=== PATIENT | male | born 1955 | race Caucasian/White ===

== ENCOUNTER 2017-08-22 10:33 | Outpatient (RCR) | payer OTHER ==
[~2017-08-22 10:33] MED LIST: ASCO500T20 PO; ASPI325T32 PO; CHOL5000 PO; CYCL10TA9 PO; FAMO20TA5 PO; FLAX100011 PO; LIPOFLAVONOID PO; LUTE20TA PO; MAGN250T7 PO; METF500T4 PO; METF500T8 PO; METO-272 PO; METO25TA PO; MULT-974 PO; OLME20TA21 PO
== END 2017-11-20 | disposition home or self-care (01) ==
LOC: CARD 10:33
PROVIDERS: ATTEND Nurse Practitioner Family
DX: R00.2 Palpitations (principal)
CPT/HCPCS: 93225; 93226

== ENCOUNTER → 2018-06-17 | Outpatient (CLI) | payer OTHER ==
--- NOTE | 2018-06-17 15:24 | Diagnostic Imaging Report ---
INDICATION: Back pain. TIME OF EXAMINATION: 1:51 PM. TECHNIQUE: Frontal and lateral views of the thoracic spine were obtained. FINDINGS: The curvature and alignment of the thoracic spine are normal. The vertebral body heights are maintained. No acute compression fracture is seen. There is multilevel degenerative disc disease with marginal osteophyte formation. The pedicles and paraspinous line are intact. IMPRESSION: Thoracic spondylosis. No acute bony abnormality is detected. Dictated by: Dictated on workstation # [id number]
== END ==
LOC: RAD 12:33
PROVIDERS: ATTEND Family Medicine
DX: M47.814 Spondylosis without myelopathy or radiculopathy, thoracic region (principal)
CPT/HCPCS: 72070

== ENCOUNTER 2019-09-30 14:51 | Outpatient (RCR) | payer MEDICARE ==
[~2019-09-30] VITALS: Ht 170 cm; Wt 82.0 kg
== END 2019-12-29 | disposition home or self-care (01) ==
LOC: DSME 14:51
PROVIDERS: ATTEND Family Medicine
DX: E11.9 Type 2 diabetes mellitus without complications (principal); I10 Essential (primary) hypertension

== ENCOUNTER → 2020-03-26 | Outpatient (CLI) | payer MEDICARE ==
--- NOTE | 2020-03-26 13:14 | Diagnostic Imaging Report ---
EXAMINATION: Left shoulder at 12:28 p.m. INDICATION: Pain. FINDINGS: Three views were obtained. There are no prior left shoulder examinations available for comparison. There is no fracture, dislocation, or acute bony abnormality evident. There is only mild degenerative disease of the acromioclavicular joint and the glenohumeral joint. The soft tissues are unremarkable. IMPRESSION: 1. There is no evidence for an acute bony abnormality. 2. If there is clinical concern regarding an injury to the rotator cuff or labrum and further imaging is desired, then MRI would be recommended. Dictated by: Dictated on workstation # [id number]
--- NOTE | 2020-03-26 13:17 | Diagnostic Imaging Report ---
EXAMINATION: Thoracic spine. INDICATION: Chronic back pain. FINDINGS: AP, lateral, and swimmer's views were obtained. The lateral view again shows the degenerative disc and bony disease involving the thoracic spine that was noted on the prior exam of 06/17/2018. The degenerative changes do not appear to have progressed. There is no fracture, dislocation, or acute bony abnormality evident. There is no sign of a paraspinal mass. IMPRESSION: 1. There is no evidence for an acute bony abnormality. 2. The degenerative disc and bony disease seen on the prior study does not appear to have progressed. Dictated by: Dictated on workstation # [id number]
== END ==
LOC: RAD 12:02
PROVIDERS: ATTEND Nurse Practitioner Family
DX: M25.512 Pain in left shoulder (principal); M51.34 Other intervertebral disc degeneration, thoracic region
CPT/HCPCS: 72072; 73030

== ENCOUNTER → 2020-04-01 | Outpatient (CLI) | payer MEDICARE | LOC: RAD 09:30 | PROVIDERS: ATTEND Family Medicine | DX: M25.512 Pain in left shoulder (principal) ==

== ENCOUNTER → 2020-08-03 | Outpatient (CLI) | payer MEDICARE ==
--- NOTE | 2020-08-03 12:15 | Diagnostic Imaging Report ---
INDICATION: Chest congestion. TIME OF EXAM: 11:45 a.m. COMPARISON: Comparison is made with prior chest from 02/24/2015. The heart size is normal. The pulmonary vascularity is unremarkable. The lungs are clear. No infiltrate, effusion or pneumothorax is detected. IMPRESSION: No acute cardiopulmonary process is detected. Dictated by: Dictated on workstation # [id number]
== END ==
LOC: RAD 11:36
PROVIDERS: ATTEND Nurse Practitioner Family
DX: R05 Cough (principal); R09.89 Other specified symptoms and signs involving the circulatory and respiratory systems
CPT/HCPCS: 71046

== ENCOUNTER → 2022-05-31 | Outpatient (CLI) | payer MEDICARE ==
--- NOTE | 2022-05-31 11:30 | Diagnostic Imaging Report ---
EXAMINATION: Cervical spine radiograph EXAM DATE: 05/31/2022 11:05 AM COMPARISON: None available. HISTORY: Chronic neck pain TECHNIQUE: 3 views FINDINGS: Vertebral body heights and alignment are normal. No acute fracture is seen. No facet hypertrophy or perched facets. Mild disc height loss at C5-C6 and C6-C7. The prevertebral soft tissues are normal. Mild multilevel cervical spondylosis. The odontoid process is intact. IMPRESSION: 1. Mild degenerative changes of the cervical spine without acute osseous abnormality. Dictated by: Dictated on workstation # [id number]
--- NOTE | 2022-05-31 12:20 | Diagnostic Imaging Report ---
INDICATION: Chronic back pain There is degenerative changes to the discs, endplates and facets throughout the thoracic spine with predominantly anterior osteophytosis. There is lower cervical spondylosis. No fracture or malalignment. IMPRESSION: Two-view thoracic spine radiographs reveal degenerative disease aligned anatomically with no fracture. Dictated by: Dictated on workstation # [id number]
== END ==
LOC: RAD
PROVIDERS: ATTEND Nurse Practitioner Family
DX: M47.812 Spondylosis without myelopathy or radiculopathy, cervical region (principal); M47.814 Spondylosis without myelopathy or radiculopathy, thoracic region
CPT/HCPCS: 72040; 72072

== ENCOUNTER 2022-06-26 15:15 | Outpatient (RCR) | payer MEDICARE | END 2022-07-03 | disposition home or self-care (01) | PROVIDERS: ATTEND Nurse Practitioner Family | DX: M54.2 Cervicalgia (principal); M54.6 Pain in thoracic spine; I10 Essential (primary) hypertension; E11.9 Type 2 diabetes mellitus without complications ==

== ENCOUNTER 2022-07-13 08:00 | Outpatient (RCR) | payer MEDICARE | END 2022-08-02 | disposition home or self-care (01) | PROVIDERS: ATTEND Nurse Practitioner Family | DX: M54.2 Cervicalgia (principal); M54.6 Pain in thoracic spine; I10 Essential (primary) hypertension; E11.9 Type 2 diabetes mellitus without complications ==

== ENCOUNTER → 2022-09-12 | Outpatient (CLI) | payer MEDICARE ==
--- NOTE | 2022-09-12 14:59 | Diagnostic Imaging Report ---
PROCEDURE: US Renal Bilateral. TECHNIQUE: Multiple real-time grayscale images were obtained over the kidneys in various projections bilaterally. INDICATION: Polycystic renal disease. COMPARISON: 08/17/2014. FINDINGS: The right kidney measures 11 cm in length. The left kidney also measures 11 cm in length. In both kidneys, there are a few small simple anechoic cysts that are benign in nature. The largest on the right measures 2.7 cm, and the largest on the left measures 3.0 cm. There is a mildly complicated cyst in the parapelvic region of the left kidney that has echogenic wall likely from discontiguous calcification. No hydronephrosis or solid mass on either side. Urinary bladder is not assessed on this examination. IMPRESSION: 1. There are a few bilateral renal cysts which are benign in appearance. These have mildly increased in size from ultrasound performed nine years ago. Follow-up in 12 months could be performed to reassess stability. Dictated by: Dictated on workstation # [id number]
== END ==
LOC: RAD 09:31
PROVIDERS: ATTEND Family Medicine
DX: N28.1 Cyst of kidney, acquired (principal)
CPT/HCPCS: 76770

== ENCOUNTER → 2022-10-24 | Outpatient (CLI) | payer MEDICARE ==
[~2022-10-24] MED LIST changes: +HOLD METFORMIN - RECEIVED CONTRAST 20 ML VIAL IV SCH; +IOHEXOL 350 MG/ML 100 ML (OMNIPAQUE 350) VIAL IV ONE; +NS 100 ML (IVPB) BAG IV ONE
--- NOTE | 2022-10-24 11:53 | Diagnostic Imaging Report ---
EXAMINATION: CT abdomen and pelvis with intravenous contrast. TECHNIQUE: Multiple contiguous axial images were obtained through the abdomen and pelvis after the uneventful administration of intravenous contrast. All CT scans use one or more of the following dose optimizing techniques: automated exposure control, MA and/or KvP adjustment based on patient size and exam type or iterative reconstruction. HISTORY: Right upper quadrant pain. COMPARISON: 02/20/2014. FINDINGS: The heart is unremarkable. The included lung bases are clear. Bilateral cortical cysts are seen. A cyst in the inferior pole of the right kidney measures 2.2 x 2.6 cm and demonstrates new peripheral calcifications. No solid renal mass. No hydronephrosis or renal calculi. The urinary bladder is unremarkable. The liver, spleen, pancreas, and adrenal glands have a normal appearance. The gallbladder is unremarkable. There is no pathologically enlarged mesenteric or retroperitoneal adenopathy. The bowel loops are nondilated. The appendix is visualized in the right lower quadrant and has a normal appearance. There is no free fluid or free air. No acute osseous abnormalities. There is no free air, loculated collection, or adenopathy in the pelvis. IMPRESSION: 1. No acute abnormalities in the abdomen and pelvis. No bowel structure, free fluid, or free air. Normal appendix. 2. Bilateral cortical cysts in the kidneys. A cyst in the inferior pole of the right kidney has developed new calcifications along the periphery since the prior exam. This represents a Bosniak 2F cyst and followup in 6-12 months is recommended. Dictated by: Dictated on workstation # [id number]
== END ==
LOC: RAD 08:19
PROVIDERS: ATTEND Family Medicine
DX: N28.1 Cyst of kidney, acquired (principal)
CPT/HCPCS: 74177

== ENCOUNTER → 2023-06-19 | Outpatient (CLI) | payer MEDICARE ==
[~2023-06-19] MED LIST changes: -HOLD METFORMIN - RECEIVED CONTRAST 20 ML VIAL IV SCH; -IOHEXOL 350 MG/ML 100 ML (OMNIPAQUE 350) VIAL IV ONE; -NS 100 ML (IVPB) BAG IV ONE
--- NOTE | 2023-06-19 09:40 | Diagnostic Imaging Report ---
EXAMINATION: CT chest without contrast. TECHNIQUE: Multiple contiguous axial images were obtained through the chest without the use of intravenous contrast. All CT scans use one or more of the following dose optimizing techniques: automated exposure control, MA and/or KvP adjustment based on patient size and exam type or iterative reconstruction. HISTORY: Subacute cough COMPARISON: None available. FINDINGS: There is no edema or pneumonia. No pleural effusion. No pneumothorax. No suspicious nodules. There is no axillary or supraclavicular lymphadenopathy. There is no mediastinal lymphadenopathy. Heart size is normal. There are mild coronary artery calcifications. No pericardial effusion. Aorta is normal in caliber. Limited views of the upper abdomen show cysts in the kidneys. There are no suspicious osseus lesions. IMPRESSION: 1. No acute abnormality in the chest. Dictated by: Dictated on workstation # [id number]
== END ==
LOC: RAD 09:00
PROVIDERS: ATTEND Family Medicine
DX: R05.2 Subacute cough (principal)
CPT/HCPCS: 71250